=== PATIENT | male | born 1995 | race Caucasian/White ===

== ENCOUNTER 2016-10-27 21:08 | Emergency (ER) | payer BC ==
[~2016-10-27] VITALS: Ht 180.3 cm; Wt 77.4 kg
[~2016-10-27 21:08] MED LIST: FEXO180T56 PO; FLUT1DIS IH; MONT10TA15 PO
--- OUTSIDE RECORDS SUMMARY | 2016-10-27 21:12 | XMS REPORT | Referral Summary ---
Author Author [facility] Organization [facility] Address Unknown Phone Unavailable Encounter VC Date(s): 01/18/15 - 01/18/15 [facility] [address] [place], [place] [address] Discharge Disposition: 01-Home or Self Care Attending Physician: Srikanth Collins MD Admitting Physician: Srikanth Collins MD Vital Signs No data available for this section Problem List No data available for this section Allergies, Adverse Reactions, Alerts No data available for this section Medications No data available for this section Results No data available for this section Immunizations No data available for this section Procedures No data available for this section Social History No data available for this section Assessment and Plan No data available for this section
--- OUTSIDE RECORDS SUMMARY | 2016-10-27 21:12 | XMS REPORT ---
Author Zaire Carranza Organization [employer] Address Unknown Phone Unavailable Care Team Providers Care Implementation Lead Name Role Phone Zaire Ferguson CP Unavailable Allergies No Known Allergies Problems Problem Type Condition Code Onset Dates Condition Status Problem ALLERGIC RHINITIS NEC 477.8 Active Problem Acne NOS 706.1 Active Problem Attention deficit disorder, without mention of hyperactivity 314.00 Active Problem Asthma with acute exacerbation 493.92 Active Medications Medication Code System Code Instructions Start Date End Date Status Dosage levofloxacin [facility] 47436 500 mg orally every 24 hours May 16, 2015 1 tab(s) Results No Known Results Summary Purpose [employer]ClinicalWorks Submission
--- OUTSIDE RECORDS SUMMARY | 2016-10-27 21:12 | XMS REPORT ---
Author Zaire Carranza Organization [employer] Address Unknown Phone Unavailable Care Team Providers Care Ordnance Handler Name Role Phone Zaire Ferguson CP Unavailable Allergies, Adverse Reactions, Alerts Substance Reaction Event Type N.K.D.A. Info Not Available Non Drug Allergy Problems Problem Type Condition Code Onset Dates Condition Status Problem Asthma exacerbation J45.901 Active Problem Attention deficit disorder, without mention of hyperactivity 314.00 Active Problem Allergic rhinitis due to pollen J30.1 Active Problem Asthma with acute exacerbation 493.92 Active Assessment Bronchitis J40 Active Problem ALLERGIC RHINITIS NEC 477.8 Active Problem Acne NOS 706.1 Active Medications Medication Code System Code Instructions Start Date End Date Status Dosage ProAir HFA NDC 80174 108MCG/A Not Specified INHALE ONE PUFF BY MOUTH FOUR TIMES DAILY NEEDED Zyrtec NDC 5412 10 mg orally once a day 1 tab(s) albuterol nebulizer NDC 0 0.083% solution nebulized every 4-6hrs prn February 23, 2016 1 vial levofloxacin NDC 29544 500 mg orally every 24 hours Apr 23, 2016 1 tab(s) Procedures Procedure Coding System Code Date Kenalog-40 mg/ml CPT-4 J3301 Apr 23, 2016 Office/Outpatient Visit-Est CPT-4 17815 Apr 23, 2016 Vital Signs Date/Time: Apr 23, 2016 Temperature 98.1 F Blood Pressure Diastolic 70 mm Hg Blood Pressure Systolic 122 mm Hg BMI 25.76 Index Height 69.5 in Weight 177 lbs Pulse 82 /min Results No Known Results Summary Purpose [employer]ClinicalWorks Submission
--- OUTSIDE RECORDS SUMMARY | 2016-10-27 21:12 | XMS REPORT | Continuity of Care Document ---
Author Author [facility] Organization [facility] Address Unknown Phone Unavailable Allergies Active Description Code Type Severity Reaction Onset Reported/Identified Relationship to Patient Clinical Status Yes No Known Allergies NKMA N/A N/A Yes No Known Drug Intolerances No Known Drug Intolerances Drug Allergy Unknown N/A 10/12/2001 Yes NO KNOW CONTRAST MEDIA ALLERGY NO KNOW CONTRAST MEDIA ALLERGY Drug Allergy Unknown N/A 2005 Yes No Known Drug Allergies No Known Drug Allergies Drug Allergy Unknown N/A 09/21/2005 Yes No Known Food Allergies No Known Food Allergies Drug Allergy Unknown N/A 09/21/2005 Yes NO KNOWN LATEX ALLERGY/SENSITI NO KNOWN LATEX ALLERGY/SENSITI Drug Allergy Unknown N/A 2005 Yes No Known Other Allergies No Known Other Allergies Drug Allergy Unknown N/A 09/21/2005 Medications Problems Date Dx Coded Attending Type Code Diagnosis Diagnosed By 01/18/2015 Zaire Ferguson MD(NAME ALERT A 493.00 Procedures Results Encounters ACCT No. Visit Date/Time Discharge Status Pt. Type Provider Facility Loc./Unit Complaint [id number] 01/18/2015 09:22:00 2014 09:22:00 DIS Outpatient Zaire Ferguson MD(NAME ALERT [facility] W. [id number] 08/06/2010 03:59:00 Inpatient
--- OUTSIDE RECORDS SUMMARY | 2016-10-27 21:12 | XMS REPORT ---
Author Zaire Carranza Organization [employer] Address Unknown Phone Unavailable Care Team Providers Care Sheet Mill Supervisor Name Role Phone Zaire Ferguson CP Unavailable Allergies No Known Allergies Problems Problem Type Condition Code Onset Dates Condition Status Problem Attention deficit disorder, without mention of hyperactivity 314.00 Active Problem ALLERGIC RHINITIS NEC 477.8 Active Problem Asthma exacerbation J45.901 Active Problem Acne NOS 706.1 Active Problem Asthma with acute exacerbation 493.92 Active Medications Medication Code System Code Instructions Start Date End Date Status Dosage doxycycline [facility] 95088 100 mg po BID Jun 13, 2015 1 Results No Known Results Summary Purpose [employer]ClinicalWorks Submission
--- OUTSIDE RECORDS SUMMARY | 2016-10-27 21:12 | XMS REPORT ---
Author Author Zaire Ferguson Organization [employer] Address Unknown Phone Unavailable Care Team Providers Care Seafood And Service Meat Manager Name Role Phone Zaire Ferguson CP Unavailable Allergies No Known Allergies Problems Problem Type Condition ICD-9 Code Onset Dates Condition Status Problem ALLERGIC RHINITIS NEC 477.8 Active Problem Acne NOS 706.1 Active Problem Attention deficit disorder, without mention of hyperactivity 314.00 Active Problem Asthma with acute exacerbation 493.92 Active Assessment Sinusitis 473.9 Active Medications Medication Code System Code Instructions Start Date End Date Status Dosage amoxicillin-clavulanate [facility] 62092 875 mg-125 mg orally every 12 hours March 03, 2015 1 tab(s) Results No Known Results Summary Purpose [employer]ClinicalWorks Submission
--- OUTSIDE RECORDS SUMMARY | 2016-10-27 21:12 | XMS REPORT ---
Author Author Zaire Ferguson Organization [employer] Address Unknown Phone Unavailable Care Team Providers Care Seo Analyst Name Role Phone Zaire Ferguson CP Unavailable Allergies No Known Allergies Problems Problem Type Condition Code Onset Dates Condition Status Problem Attention deficit disorder, without mention of hyperactivity 314.00 Active Problem ALLERGIC RHINITIS NEC 477.8 Active Problem Asthma exacerbation J45.901 Active Problem Acne NOS 706.1 Active Problem Asthma with acute exacerbation 493.92 Active Medications No Known Medications Results No Known Results Summary Purpose [employer]Works Submission
--- OUTSIDE RECORDS SUMMARY | 2016-10-27 21:12 | XMS REPORT ---
Author Author Zaire Ferguson Organization [employer] Address Unknown Phone Unavailable Care Team Providers Care Malt Specifications Control Assistant Name Role Phone Zaire Ferguson CP Unavailable Allergies No Known Allergies Problems Problem Type Condition Code Onset Dates Condition Status Problem Attention deficit disorder, without mention of hyperactivity 314.00 Active Problem ALLERGIC RHINITIS NEC 477.8 Active Problem Asthma exacerbation J45.901 Active Assessment Cough R05 Active Assessment Fatigue R53.83 Active Problem Acne NOS 706.1 Active Problem Asthma with acute exacerbation 493.92 Active Medications No Known Medications Results No Known Results Summary Purpose [employer]ClinicalWorks Submission
--- OUTSIDE RECORDS SUMMARY | 2016-10-27 21:12 | XMS REPORT | Referral Summary ---
Author Author [facility] Organization [facility] Address Unknown Phone Unavailable Care Team Providers Care Social Staff Worker Name Role Phone Sanjeev Ferguson Primary Care Physician [phone] Encounter [facility] [id number] Date(s): 08/17/15 - 08/17/15 [facility] [address] [place], [place] [address] Discharge Diagnosis: Chronic tonsillitis Discharge Diagnosis: Seasonal allergic rhinitis Discharge Disposition: -Home or Self Care Attending Physician: Howie Hanna MD Admitting Physician: Howie Hanna MD Referring Physician: Lamine Ferguson MD Vital Signs No data available for this section Problem List No data available for this section Allergies, Adverse Reactions, Alerts No Known Allergies Medications No Known Medications Results No data available for this section Immunizations No data available for this section Procedures Procedure Date Related Diagnosis Body Site Knee1 Nose2 1Acl And Mcl 2Set Social History Social History Type Response Smoking Status Never smoker Assessment and Plan Extracted from: Title: Consult Note Author: Howie Hanna MD Date: 08/17/15 Assessment/Plan 1.Chronic tonsillitis 2.Seasonal allergic rhinitis
--- OUTSIDE RECORDS SUMMARY | 2016-10-27 21:12 | XMS REPORT ---
Author Author Zaire Ferguson Organization [employer] Address Unknown Phone Unavailable Care Team Providers Care Lock Corner Machine Operator Name Role Phone Zaire Ferguson CP Unavailable [...]
--- OUTSIDE RECORDS SUMMARY | 2016-10-27 21:12 | XMS REPORT ---
Author Author Zaire Ferguson Organization [employer] Address Unknown Phone Unavailable Care Team Providers Care Sales Representative Supervisor Name Role Phone Zaire Ferguson CP [...]
--- OUTSIDE RECORDS SUMMARY | 2016-10-27 21:13 | XMS REPORT ---
Author Author Zaire Ferguson Organization [employer] Address Unknown Phone Unavailable Care Team Providers Care Fat Purification Worker Name Role Phone Zaire Ferguson CP Unavailable [...]
--- OUTSIDE RECORDS SUMMARY | 2016-10-27 21:13 | XMS REPORT ---
Author Author Zaire Ferguson Organization [employer] Address Unknown Phone Unavailable Care Team Providers Care Hockey Instructor Name Role Phone Zaire Ferguson CP Unavailable [...]
--- OUTSIDE RECORDS SUMMARY | 2016-10-27 21:13 | XMS REPORT ---
Author Author Zaire Ferguson Organization [employer] Address Unknown Phone Unavailable Care Team Providers Care Grocery Associate Name Role Phone Zaire Ferguson CP Unavailable Allergies No Known Allergies Problems Problem Type Condition ICD-9 Code Onset Dates Condition Status Problem Attention deficit disorder, without mention of hyperactivity 314.00 Active Problem ALLERGIC RHINITIS NEC 477.8 Active Assessment ALLERGIC RHINITIS NEC 477.8 Active Problem Acne NOS 706.1 Active Problem Asthma with acute exacerbation 493.92 Active Medications Medication Code System Code Instructions Start Date End Date Status Dosage albuterol nebulizer Unknown 0 0.083% solution nebulized every 4-6hrs prn May 05, 2011 Active 1 vial Singulair MULTUM 53249 10 mg orally once a day (in the evening) Mar 24, 2012 Active 1 tab(s) sertraline MULTUM 24756 25 mg orally once a day October 21, 2012 Active 1 tab(s) Advair Diskus MULTUM 14544 250 mcg-50 mcg inhaled BID October 24, 2009 Active 1 puff(s) Zithromax Z-Yomi MULTUM 3343 Oral Active As directed Zyrtec MULTUM 5412 10 mg orally once a day Active 1 tab(s) ProAir HFA MULTUM 36783 90MCG Not Specified October 11, 2012 Active INHALE ONE PUFF BY MOUTH FOUR TIMES DAILY NEEDED Procedures Procedure Coding System Code Date Office/Outpatient Visit-Est CPT-4 37984 January 28, 2013 Kenalog-80 CPT-4 J3301 January 28, 2013 Vital Signs Date/Time: January 28, 2013 Temperature 99 F Blood Pressure Diastolic 60 mm Hg Blood Pressure Systolic 100 mm Hg Height 69.5 inches Weight 175.9 lbs Cardiac Monitoring Heart Rate 70 Beats per Minute Results No Known Results Immunizations Vaccine Administration Date Kenalog-80 January 28, 2013 Summary Purpose eClinicalWorks Submission
--- OUTSIDE RECORDS SUMMARY | 2016-10-27 21:13 | XMS REPORT ---
Author Zaire Carranza [facility] [employer] Address Unknown Phone Unavailable Care Team Providers Care Supervisor [employer] Name Role Phone Zaire Ferguson CP Unavailable Allergies, Adverse Reactions, Alerts Substance Reaction Event Type N.K.D.A. Info Not Available Non Drug Allergy Problems Problem Type Condition Code Onset Dates Condition Status Problem Attention deficit disorder, without mention of hyperactivity 314.00 Active Problem ALLERGIC RHINITIS NEC 477.8 Active Problem Asthma exacerbation J45.901 Active Assessment Asthma exacerbation J45.901 Active Assessment Pharyngitis J02.9 Active Problem Acne NOS 706.1 Active Problem Asthma with acute exacerbation 493.92 Active Medications Medication Code System Code Instructions Start Date End Date Status Dosage Zyrtec NDC 5412 10 mg orally once a day 1 tab(s) Advair Diskus NDC 88089 250 mcg-50 mcg inhaled BID October 24, 2009 1 puff(s) levofloxacin NDC 57618 500 mg orally every 24 hours May 16, 2015 1 tab(s) sertraline NDC 43981 25 mg orally once a day October 21, 2012 1 tab(s) Singulair NDC 52480 10 mg orally once a day (in the evening) Mar 24, 2012 1 tab(s) albuterol nebulizer NDC 0 0.083% solution nebulized every 4-6hrs prn Aug 1 vial ProAir HFA NDC 68443 108MCG/A Not Specified INHALE ONE PUFF BY MOUTH FOUR TIMES DAILY NEEDED Prednisone taper (40mg start) NDC 64511 10 mg oral May 22, 2015 4 daily for 3 days, then 3 daily for 3 days, then 2 daily for 3 days, then 1 daily for 3 days Procedures Procedure Coding System Code Date Office/Outpatient Visit-Est CPT-4 25538 May 22, 2015 Heterophile Antibodies CPT-4 44350 May 22, 2015 Vital Signs Date/Time: May 22, 2015 Temperature 97.9 F Blood Pressure Diastolic 54 mm Hg Blood Pressure Systolic 110 mm Hg BMI 26.05 Index Height 69.5 in Weight 179 lbs Pulse 64 /min BMIPercentile 81.89 % Results Name Result Date Reference Range Unit Abnormality Flag Mononucleosis Test, Qualitative Summary Purpose eClinicalWorks Submission
--- OUTSIDE RECORDS SUMMARY | 2016-10-27 21:13 | XMS REPORT ---
Author Zaire Carranza Organization [employer] Address Unknown Phone Unavailable Care Team Providers Care Intel Analyst Name Role Phone Zaire Ferguson CP Unavailable Allergies, Adverse Reactions, Alerts Substance Reaction Event Type N.K.D.A. Info Not Available Non Drug Allergy Problems Problem Type Condition Code Onset Dates Condition Status Problem ALLERGIC RHINITIS NEC 477.8 Active Problem Acne NOS 706.1 Active Problem Attention deficit disorder, without mention of hyperactivity 314.00 Active Problem Asthma with acute exacerbation 493.92 Active Assessment Acute bacterial tonsillitis 463 Active Medications Medication Code System Code Instructions Start Date End Date Status Dosage Singulair NDC 80920 10 mg orally once a day (in the evening) Mar 24, 2012 1 tab(s) sertraline NDC 67568 25 mg orally once a day October 21, 2012 1 tab(s) albuterol nebulizer NDC 0 0.083% solution nebulized every 4-6hrs prn Aug 1 vial Zyrtec NDC 5412 10 mg orally once a day 1 tab(s) Advair Diskus NDC 29832 250 mcg-50 mcg inhaled BID October 24, 2009 1 puff(s) cefprozil NDC 41288 500 mg orally every 12 hours May 01, 2015 1 tab (s) ProAir HFA NDC 06637 108MCG/A Not Specified INHALE ONE PUFF BY MOUTH FOUR TIMES DAILY NEEDED Procedures Procedure Coding System Code Date Office/Outpatient Visit-Est CPT-4 56362 May 01, 2015 Vital Signs Date/Time: May 01, 2015 Temperature 98.4 F Blood Pressure Diastolic 80 mm Hg Blood Pressure Systolic 120 mm Hg BMI 25.43 Index Height 69.5 in Weight 174.7 lbs Results No Known Results Summary Purpose eClinicalWorks Submission
--- OUTSIDE RECORDS SUMMARY | 2016-10-27 21:13 | XMS REPORT ---
Author Zaire Carranza Organization [employer] Address Unknown Phone Unavailable Care Team Providers Care Clinical Specialist Name Role Phone Zaire Ferguson CP Unavailable Allergies, Adverse Reactions, Alerts Substance Reaction Event Type N.K.D.A. Info Not Available Non Drug Allergy Problems Problem Type Condition ICD-9 Code Onset Dates Condition Status Problem ALLERGIC RHINITIS NEC 477.8 Active Problem Acne NOS 706.1 Active Problem Attention deficit disorder, without mention of hyperactivity 314.00 Active Problem Asthma with acute exacerbation 493.92 Active Assessment Conjunctivitis 372.30 Active Medications Medication Code System Code Instructions Start Date End Date Status Dosage sertraline NDC 76000 25 mg orally once a day October 21, 2012 1 tab(s) Singulair NDC 52882 10 mg orally once a day (in the evening) Mar 24, 2012 1 tab(s) ProAir HFA NDC 93479 108MCG/A Not Specified INHALE ONE PUFF BY MOUTH FOUR TIMES DAILY NEEDED tobramycin ophthalmic NDC 81819 0.3% in each affected eye 4 times a day October 26, 2014 1 gtt Advair Diskus NDC 16679 250 mcg-50 mcg inhaled BID October 24, 2009 1 puff(s) Zyrtec NDC 5412 10 mg orally once a day 1 tab(s) albuterol nebulizer NDC 0 0.083% solution nebulized every 4-6hrs prn Aug 1 vial Procedures Procedure Coding System Code Date Office/Outpatient Visit-Est CPT-4 06967 October 26, 2014 Vital Signs Date/Time: October 26, 2014 Temperature 97.7 F Blood Pressure Diastolic 78 mm Hg Blood Pressure Systolic 122 mm Hg BMI 27.25 Index Height 69.5 in Weight 187.2 lbs Pulse 70 /min Results No Known Results Summary Purpose eClinicalWorks Submission
--- OUTSIDE RECORDS SUMMARY | 2016-10-27 21:13 | XMS REPORT ---
Author Zaire Carranza [facility] [employer] Address Unknown Phone Unavailable Care Team Providers Care Paper Guillotine Operator Name Role Phone Zaire Ferguson CP Unavailable Allergies, Adverse Reactions, Alerts Substance Reaction Event Type N.K.D.A. Info Not Available Non Drug Allergy Problems Problem Type Condition ICD-9 Code Onset Dates Condition Status Problem ALLERGIC RHINITIS NEC 477.8 Active Problem Acne NOS 706.1 Active Problem Attention deficit disorder, without mention of hyperactivity 314.00 Active Problem Asthma with acute exacerbation 493.92 Active Assessment ACUTE SINUSITIS NOS 461.9 Active Medications Medication Code System Code Instructions Start Date End Date Status Dosage Zithromax Z-Yomi MULTUM 3343 Oral Jun 02, 2013 Active As directed ProAir HFA MULTUM 92067 108MCG/A Not Specified Active INHALE ONE PUFF BY MOUTH FOUR TIMES DAILY NEEDED albuterol nebulizer Unknown 0 0.083% solution nebulized every 4-6hrs prn May 05, 2011 Active 1 vial Zithromax Z-Yomi MULTUM 3343 Oral February 16, 2014 Active As directed Prednisone taper (40mg start) MULTUM 02116 10 mg oral Apr 08, 2013 Active 4 daily for 3 days, then 3 daily for 3 days, then 2 daily for 3 days, then 1 daily for 3 days Zyrtec MULTUM 5412 10 mg orally once a day Active 1 tab(s) Singulair MULTUM 16436 10 mg orally once a day (in the evening) Mar 24, 2012 Active 1 tab(s) Prednisone taper (40mg start) MULTUM 42791 10 mg oral February 16, 2014 Active 4 daily for 3 days, then 3 daily for 3 days, then 2 daily for 3 days, then 1 daily for 3 days sertraline MULTUM 79184 25 mg orally once a day October 21, 2012 Active 1 tab(s) Advair Diskus MULTUM 30915 250 mcg-50 mcg inhaled BID October 24, 2009 Active 1 puff(s) Procedures Procedure Coding System Code Date Office/Outpatient Visit-Est CPT-4 07453 February 16, 2014 Vital Signs Date/Time: February 16, 2014 Temperature 98 F Blood Pressure Diastolic 60 mm Hg Blood Pressure Systolic 120 mm Hg Height 69.5 in Weight 170.9 lbs Results No Known Results Summary Purpose eClinicalWorks Submission
--- OUTSIDE RECORDS SUMMARY | 2016-10-27 21:13 | XMS REPORT ---
Author Author Zaire Ferguson Organization [employer] Address Unknown Phone Unavailable Care Team Providers Care Director Of Marketing And Promotions Name Role Phone Zaire Ferguson CP Unavailable [...] Start Date End Date Status Dosage levofloxacin [facility] 14211 500 mg orally every 24 hours Aug 30, 2015 1 tab(s) Results No Known Results Summary Purpose eClinicalWorks Submission
--- OUTSIDE RECORDS SUMMARY | 2016-10-27 21:13 | XMS REPORT ---
Author Author Zaire Ferguson Organization [employer] Address Unknown Phone Unavailable Care Team Providers Care Therapist Rrt Name Role Phone Zaire Ferguson CP Unavailable Allergies No Known Allergies Problems Problem Type Condition ICD-9 Code Onset Dates Condition Status Problem Attention deficit disorder, without mention of hyperactivity 314.00 Active Problem ALLERGIC RHINITIS NEC 477.8 Active Assessment Acute bronchitis 466.0 Active Problem Acne NOS 706.1 Active Problem Asthma with acute exacerbation 493.92 Active Medications Medication Code System Code Instructions Start Date End Date Status Dosage Zyrtec MULTUM 5412 10 mg orally once a day Active 1 tab(s) albuterol nebulizer Unknown 0 0.083% solution nebulized every 4-6hrs prn May 05, 2011 Active 1 vial Advair Diskus MULTUM 42340 250 mcg-50 mcg inhaled BID October 24, 2009 Active 1 puff(s) sertraline MULTUM 60544 25 mg orally once a day October 21, 2012 Active 1 tab(s) Zithromax Z-Yomi MULTUM 3343 Oral Apr 08, 2013 Active As directed Prednisone taper (40mg start) MULTUM 00810 10 mg oral Apr 08, 2013 Active 4 daily for 3 days, then 3 daily for 3 days, then 2 daily for 3 days, then 1 daily for 3 days Singulair MULTUM 04826 10 mg orally once a day (in the evening) Mar 24, 2012 Active 1 tab(s) ProAir HFA MULTUM 46986 90MCG Not Specified October 11, 2012 Active INHALE ONE PUFF BY MOUTH FOUR TIMES DAILY NEEDED Procedures Procedure Coding System Code Date Office/Outpatient Visit-Est CPT-4 54013 Apr 08, 2013 Vital Signs Date/Time: Apr 08, 2013 Temperature 97 F Blood Pressure Diastolic 60 mm Hg Blood Pressure Systolic 110 mm Hg Height 69.5 inches Weight 175.8 lbs Cardiac Monitoring Heart Rate 72 Beats per Minute Results No Known Results Summary Purpose eClinicalWorks Submission
--- OUTSIDE RECORDS SUMMARY | 2016-10-27 21:13 | XMS REPORT ---
Author Author Zaire Ferguson Organization [employer] Address Unknown Phone Unavailable Care Team Providers Care Infrastructure Developer Name Role Phone Zaire Ferguson CP Unavailable Allergies No Known Allergies Problems Problem Type Condition Code Onset Dates Condition Status Problem ALLERGIC RHINITIS NEC 477.8 Active Problem Acne NOS 706.1 Active Problem Attention deficit disorder, without mention of hyperactivity 314.00 Active Problem Asthma with acute exacerbation 493.92 Active Medications No Known Medications Results No Known Results Summary Purpose [employer] Medical Submission
--- OUTSIDE RECORDS SUMMARY | 2016-10-27 21:13 | XMS REPORT ---
Author Author Zaire Ferguson Organization [employer] Address Unknown Phone Unavailable Care Team Providers Care Sheet Heater Name Role Phone Zaire Ferguson CP Unavailable Allergies No Known Allergies Problems Problem Type Condition ICD-9 Code Onset Dates Condition Status Problem ALLERGIC RHINITIS NEC 477.8 Active Problem Acne NOS 706.1 Active Problem Attention deficit disorder, without mention of hyperactivity 314.00 Active Problem Asthma with acute exacerbation 493.92 Active Assessment ALLERGIC RHINITIS NEC 477.8 Active Medications No Known Medications Procedures Procedure Coding System Code Date 40 CPT-4 J3301 Apr 21, 2015 Results No Known Results Summary Purpose [employer]ClinicalWorks Submission
--- OUTSIDE RECORDS SUMMARY | 2016-10-27 21:13 | XMS REPORT ---
Author Author Zaire Ferguson Organization [employer] Address Unknown Phone Unavailable Care Team Providers Care Tele Marketing Executive Name Role Phone Zaire Ferguson CP Unavailable Allergies No Known Allergies Problems Problem Type Condition Code Onset Dates Condition Status Problem Asthma exacerbation J45.901 Active Problem Attention deficit disorder, without mention of hyperactivity 314.00 Active Problem Allergic rhinitis due to pollen J30.1 Active Problem Asthma with acute exacerbation 493.92 Active Problem ALLERGIC RHINITIS NEC 477.8 Active Problem Acne NOS 706.1 Active Medications No Known Medications Results No Known Results Summary Purpose eClinicalWorks Submission
--- OUTSIDE RECORDS SUMMARY | 2016-10-27 21:13 | XMS REPORT ---
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
[2016-10-27 21:41] VITALS: Ht 180.3 cm; Wt 77.4 kg
--- NOTE | 2016-10-27 21:59 | NUR ---
REPORT RECEIVED FROM BERNICE DOUGHERTY. CARE ASSUMED.
[2016-10-27] MEDS ORDERED: IBUP-14 PO (22:22)
[2016-10-27] MEDS ORDERED: ALBU1.252 AEROSOL (22:23)
--- NOTE | 2016-10-27 22:54 | ERPDOC ---
Departure Disposition Decision Date: Oct 28, 2016 Disposition Decision Time: 00:10 Disposition: 01 DISCHARGED HOME, SELF-CARE Impression Impression Impression: Primary Impression: Influenza A Severity: Moderate Condition: Improved Seen By: Physician only Referrals: EDGARDO SIERRA (Family) Patient Instructions: Influenza (ED) Problems/Meds/Labs Reviewed?: Yes Medications reviewed and manag: Yes Departure Forms: Return to Work/School Permit Return to Work/School Date: Nov 04, 2016 Follow up care ordered?: Yes Mental Status: Alert, Oriented Scripts Prednisone (Prednisone) 20 Mg Tablet 40 MG PO WB for 5 Days, #10 TAB Take 2 (20 mg) tablets, by mouth, once a day with breakfast. Prov: DHAVAL RHODES MD 10/28/16 Oseltamivir Phosphate (Tamiflu) 75 Mg Capsule 75 MG PO BID for 5 Days, #10 CAP Take one capsules, by mouth, two times a day. Prov: DHAVAL RHODES MD 10/28/16 HPI - Respiratory General General Chief Complaint: Dyspnea/Respdistress Stated Complaint: CP, COLD SWEATS, FEVER, CONGESTION Time Seen by Provider: 22:54 Source: patient, family Exam Limitations: no limitations HPI - Respiratory General Initial Comments Patient is a 20-year-old male history of asthma. Patient presents the ER for evaluation of one day history of significant congestion, pain on inspiration cough, subjective fevers call flat and body aches. All of these symptoms came on this morning, patient has attempted multiple [id number] medications with no relief, did is asthma family became concerned and decided to bring patient to the ER for evaluation. Occurred At: home Onset: Rapid Duration: 6-12 hrs Pain Scale: Now & Worst: 6/10 Prior Episodes/Possible Cause: occasional episodes Modifying Factors: IMPROVES WITH: inhaler, WORSE WITH: activity, coughing Allergies: Coded Allergies: No Known Drug Allergies (Unverified Allergy, Unknown, 10/27/16) Past History Past Medical History Respiratory: asthma Surgical History Denies Surgeries Social History Smoking Status: Never smoker Substance Use Type: does not use Alcohol Intake: none Review of Systems Constitutional Constitutional: chills, weakness, DENIES: appetite decrease, dizziness, fever Eyes Vision: DENIES: double vision, loss of visual hudosn ENMT Sinuses: congestion, rhinorrhea Mouth/Throat: sore throat, DENIES: scratchy throat Cardiovascular Cardiac: chest pain, dyspnea on exertion Pulmonary Respiratory: cough, dyspnea, pleuritic chest pain, sputum, tachypnea GI Upper Abdomen: DENIES: nausea, pain, vomiting Lower Abdomen: DENIES: constipation, diarrhea, pain Musculoskeletal General: DENIES: cramps, pain, weakness Integumentary Skin: DENIES: color change, itching, rash Endocrine Endocrine: DENIES: heat/cold intolerance Hematologic/Lymphatic Hematologic/Lymphatic: DENIES: anemia Physical Exam General General Nourishment: well nourished, well developed General Body Habitus: well groomed Vitals and Pain First Documented Vital Signs Date Time Temp Pulse Resp B/P Pulse Ox O2 Delivery O2 Flow Rate FiO2 10/27/16 21:41 98.9 81 16 135/88 96 Room Air Weight: Kilograms: 77.400 Height (feet): 5 Height (inches): 11.00 Triage Pain Scale: RN VS reviewed by Provider: Yes Eyes (brief) Eyes Brief: found: EOMI ENMT (brief) ENMT Brief: FOUND: mucosa moist, normal dentition, NOT FOUND: nasal erythema, pharnyx erythema, tonsillar deviation Neck (brief) Neck: NOT FOUND: adenopathy, spasm, tenderness Respiratory (brief) Respiratory: FOUND: clear all h[place], equal bilaterally, wheezes, NOT FOUND: rales Cardiovascular (brief) Cardiac: FOUND: regular rate, regular rhythm Capillary Refill: <2 sec Abdomen (brief) Abdominal Brief: FOUND: bowel normo active x4, soft, NOT FOUND: distended, tender Lymphatic (brief) Lymphatic Brief: NOT FOUND: adenopathy Musculoskeletal (brief) Musculoskeletal Brief: NOT FOUND: spasm, tenderness Integumentary (brief) Integumentary Brief: FOUND: dry, pink, warm, NOT FOUND: rash Neurologic (brief) Neurological Brief: FOUND: CN w/o gross def to obs, motor-no gross deficits, sensory-no gross deficits Psychiatric (brief) Psychiatric Brief: FOUND: alert, oriented Differential Diagnoses Differential Diagnoses Considering: Acute Bronchitis, Acute Respiratory Failure, Asthma Exacerbation, Costochondritis, Influenza, Pneumonia, Pulmonary Edema, Sinusitis Progress Results/Orders Orders Procedure Category Date Status Time Chest, Pa & Lateral RAD 10/27/16 Taken 22:58 Influenza A/B Screen LAB 10/27/16 Complete 22:58 Loratadine/Pse 10/240 PHA 10/27/16 Complete (Claritin-D 24hr) 23:00 Methylprednisolone PHA 10/27/16 Complete Sod Succ (Solu-Medrol 23:00 Albuterol/Ipratropium PHA 10/27/16 Complete (Duoneb) 23:00 Oseltamivir (Tamiflu) PHA 10/28/16 Complete 00:15 Lab Results Laboratory Tests Test 10/27/16 23:27 Influenza Type A Antigen Positive Influenza Type B Antigen Negative Medications Current ED Medications Loratadine/ Pseudoephedrine Sulfate (Claritin-D 24hr) 1 tab O ONCE PO Last administered on 10/27/16 23:42; Start 10/27/16 at 23:00; Stop 10/27/16 at 23:01 ; Status DC Methylprednisolone Sodium Succinate (Solu-Medrol) 125 mg O ONCE IM Last administered on 10/27/16 23:23; Start 10/27/16 at 23:00; Stop 10/27/16 at 23:01 ; Status DC Albuterol/ Ipratropium (Duoneb) 3 ml O ONCE AEROSOL Last administered on 23:29; Start 10/27/16 at 23:00; Stop 10/27/16 at 23:01; Status DC Oseltamivir Phosphate (Tamiflu) 75 mg O ONCE PO Last administered on 00:22; Start 10/28/16 at 00:15; Stop 10/28/16 at 00:16; Status DC Progress Progress Patient improvement of symptoms after DuoNeb Solu-Medrol, Claritin-D. Chest x- ray noncontributory, patient is influenza A positive will start Tamiflu no work for a week, short prednisone burst follow-up with PCP if not improving Xray Xray : Xray: CXR PA/Lat Interpretation: Normal, Interpreted by DHAVAL Cabrera MD Oct 27, 2016 22:54
[2016-10-27] MEDS ORDERED: PSE PO ONE (23:00)
[2016-10-27] MEDS ORDERED: ALBUTEROL/IPRATROPIUM INHAL. 2.5mg-0.5mg/3ml Neb. AEROSOL ONE (23:00)
[2016-10-27] MEDS ORDERED: LORATADINE PO ONE (23:00)
--- NOTE | 2016-10-27 23:01 | NUR ---
MED/RT PT GIVEN INSTRUCTION REGARDING SOLUMEDROL INJECTION. RT AT BEDSIDE FOR TX.
--- NOTE | 2016-10-27 23:30 | NUR ---
REPORT GIVEN TO BERNICE DOUGHERTY. CARE ASSUMED.
--- NOTE | 2016-10-27 23:44 | NUR ---
XRY PT TO XRY VIA AQUILES.
--- NOTE | 2016-10-27 23:53 | NUR ---
ROOM PT RETURNED TO ROOM 6 PER CART FROM XRAY
[2016-10-28 00:01] LABS: INFLUENZA A AG SCREEN POSITIVE (NEGATIVE)
[2016-10-28 00:02] LABS: INFLUENZA B AG SCREEN NEGATIVE (NEGATIVE)
[2016-10-28] MEDS ORDERED: OSEL75CA PO (00:11)
[2016-10-28] MEDS ORDERED: PRED20TA PO (00:11)
[2016-10-28] MEDS ORDERED: OSELTAMIVIR 75 MG CAPSULE PO ONE (00:15)
--- NOTE | 2016-10-28 00:22 | NUR ---
MED PT GIVEN TAMIFLU WITH WATER PT TAKES MED EASILY
--- OUTSIDE RECORDS SUMMARY | 2016-10-28 00:24 | XMS REPORT | Continuity of Care Document ---
Author Author [facility] Organization [facility] Address Unknown Phone Unavailable Allergies Active Description [...] Status Pt. Type Provider Facility Loc./Unit Complaint [id number] 01/18/2015 09:22:00 2014 09:22:00 DIS Outpatient Zaire Ferguson MD(NAME ALERT [facility] W. [id number] 08/06/2010 03:59:00 Inpatient
--- NOTE | 2016-10-28 00:31 | NUR ---
INSTRUCTIONS DISMISSAL AND MEDICATION INSTRUCTIONS GIVEN TO PT 2RX GIVEN FOR PREDNISONE AND TAMIFLU WITH INSTRUCTIONS WORK NOTE PROVIDED PT VERBALIZED UNDERSTANDING OF ALL
[2016-10-28 00:33] VITALS: BP 136/71; PULSE 80; RESP 16; TEMP 99; O2SAT 97
--- NOTE | 2016-10-28 00:33 | NUR ---
DISMISS PT DISMISSED AMBULATORY WITH FATHER
--- NOTE | 2016-10-28 07:47 | DI ---
INDICATION: ITS.REASON: 20-year-old male with cough shortness of air PROCEDURE: CHEST 2-VIEWS UPRIGHT (PA \T\ LAT) Encounter: Initial COMPARISON: None FINDINGS: The lungs are mildly hyperaerated yet clear without evidence of focal abnormal airspace opacity. There is no pleural effusion or pneumothorax. The heart size, mediastinal contours and pulmonary vascularity are within normal limits. There is no significant skeletal abnormality. IMPRESSION: There is mild pulmonary hyperaeration which may reflect some degree of air trapping or perhaps asthmatic bronchitis. No focal infiltrate. .
== END 2016-10-28 00:33 | disposition home or self-care (01) ==
LOC: ED 21:08
DX: J10.1 Influenza due to other identified influenza virus with other respiratory manifestations (principal)
CPT/HCPCS: 71020; 87400; 94640; 96372; 99283; J2930